=== PATIENT | female | born 1965 | race Caucasian/White ===

== ENCOUNTER 2020-04-01 10:25 | Emergency (ER) | payer BC, SELFPAY ==
--- NOTE | 2020-04-01 10:28 | ED.GENADULT ---
HPI - General Adult General Chief complaint: Upper Respiratory Infection Stated complaint: No taste or smell Time Seen by Provider: 04/01/20 10:27 Source: patient Mode of arrival: ambulatory Limitations: no limitations History of Present Illness HPI narrative: 54-year-old female patient presents to the [facility] with complaints of cold symptoms and then woke up today with no taste or no smell. Patient denies being around anybody recently that she is aware of that has Covid. Patient states she has been taking [id number] Mucinex and ibuprofen for her symptoms. Patient denies any chest pain, shortness of breath, fevers, body aches or chills. Related Data Allergies Allergy/AdvReac Type Severity Reaction Status Date / Time Sulfa (Sulfonamide Allergy Intermediate rash Verified 08/25/17 12:20 Antibiotics) Review of Systems Review of Systems: Narrative: CONSTITUTIONAL: Denies fever, chills, or sweats. EYES: Denies visual changes, redness, or discharge. ENT: Positive rhinorrhea, congestion, denies sore throat, or otalgia. Positive no sneezing mouth or taste starting today CARDIOVASCULAR: Denies chest pain, palpitations, or edema. RESPIRATORY: Denies cough or dyspnea. GASTROINTESTINAL: Denies abdominal pain, nausea, vomiting, or diarrhea. GENITOURINARY: Denies dysuria or hematuria. SKIN: Denies rash or itching. MUSCULOSKELETAL: Denies back pain, joint pain, or myalgia. NEUROLOGIC: Positive headache, denies numbness, or weakness. PSYCHIATRIC: Denies anxiety or depression. 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 There is no relevant family history pertinent to the presenting complaint. Exam Narrative: Exam Narrative: GENERAL: Well-appearing, well-nourished, and in no acute distress. HEAD: Normocephalic, atraumatic. EYES: PERRLA and EOMI. ENT: Nares clear, no rhinorrhea or epistaxis. Mucous membranes moist. NECK: Supple. No lymphadenopathy CHEST: Clear to auscultation. No respiratory distress. Patient able talk in clear complete sentences. No tripoding noted. HEART: Regular rate and rhythm. No murmur heard. Normal peripheral pulses. ABDOMEN: Soft, nontender, nondistended, normal active bowel sounds. EXTREMITIES: Normal range of motion. No edema. SKIN: Warm, dry, no rash. NEURO: No focal deficits. Alert and oriented x3. Course Vital Signs Vital signs: Vital Signs Temperature 36.6 C 04/01/20 10:50 Pulse Rate 86 04/01/20 10:50 Respiratory Rate 18 04/01/20 10:50 Blood Pressure 142/90 H 04/01/20 10:50 Pulse Oximetry 99 04/01/20 10:50 Temperature 36.6 C 04/01/20 10:50 Pulse Rate 86 04/01/20 10:50 Respiratory Rate 18 04/01/20 10:50 Blood Pressure 142/90 H 04/01/20 10:50 Pulse Oximetry 99 04/01/20 10:50 Vital signs reviewed The patient has been informed that they may have pre-hypertension or Hypertension based on a BP reading in the department. I recommend that the patient call the primary care provider listed on their discharge instructions or a physician of their choice this week to arrange follow up for further evaluation of possible pre-hypertension or Hypertension Medical Decision Making Differential Diagnosis Differential Diagnosis: Differential diagnosis: Allergic rhinitis, chronic sinusitis, tonsillitis, acute sinusitis, infectious mononucleosis, seasonal influenza, pertussis, diphtheria, meningococcal disease, viral syndrome, viral bronchitis, RSV, COVID-19 Discussed with patient that we did do a rap
[2020-04-01 10:50] VITALS: BP 142/90; PULSE 86; RESP 18; TEMP 36.6; O2SAT 99
== END 2020-04-01 11:11 | disposition home or self-care (01) ==
PROVIDERS: Emergency Provider Nurse Practitioner Family; PCP Internal Medicine
DX: U07.1 COVID-19 (principal)
CPT/HCPCS: 87426; 99213; C9803; G0463

== ENCOUNTER 2020-11-27 12:55 | Emergency (ER) | payer BC, SELFPAY ==
[2020-11-27 13:04] VITALS: BP 144/86; PULSE 16; RESP 81; TEMP 36.3; O2SAT 99
--- NOTE | 2020-11-27 14:33 | ED.URI ---
HPI - URI/Sore Throat General Chief Complaint: Upper Respiratory Infection Stated Complaint: Ear,Throat Pain Time Seen by Provider: 11/27/20 14:00 Source: patient, RN notes reviewed and old records reviewed Mode of arrival: ambulatory Limitations: no limitations History of Present Illness HPI Narrative: 55 year old female presents to [facility] care with one week duration of sinus congestion and post nasal drainage. Patient states that she has sinus pressure to her face and even her teeth hurt. She reports that she is fully COVID vaccinated, denies any shortness of breath or any body aches.Patient denies any known fevers chills or sweats. Patient has been taking Claritin and Mucinex and using nasal spray with no resolution of her symptoms.Patient has prior history of sinus surgery and sinus infections. MD elicited complaint: sore throat and nasal congestion Related Data Allergies Allergy/AdvReac Type Severity Reaction Status Date / Time Sulfa (Sulfonamide Allergy Intermediate rash Verified 11/27/20 13:32 Antibiotics) Review of Systems Review of Systems: CONSTITUTIONAL: Denies fever, chills, or sweats. EYES: Denies visual changes, redness, or discharge. ENT: Positive for rhinorrhea, congestion, facial pressure,no sore throat, or otalgia. CARDIOVASCULAR: Denies chest pain, palpitations, or edema. RESPIRATORY: Denies cough or dyspnea. GASTROINTESTINAL: Denies abdominal pain, nausea, vomiting, or diarrhea. GENITOURINARY: Denies dysuria or hematuria. SKIN: Denies rash or itching. MUSCULOSKELETAL: Denies back pain, joint pain, or myalgia. NEUROLOGIC: Denies headache, numbness, or weakness. PSYCHIATRIC: Denies anxiety or depression. 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 Uterine ablation Pneumonia Sinus problem Sinus surgery Surgical History Surgical History (Updated 11/30/20 @ 17:22 by Kim Knapp NP) History of endometrial ablation Family History Family History (Updated 11/30/20 @ 17:11 by Kim Knapp NP) Grandparent Diabetes mellitus Cerebrovascular accident Father Heart disease Mother Dementia Social History Social History (Updated 11/30/20 @ 17:23 by Kim Knapp NP) Smoking status: Former smoker Tobacco type: cigarettes Alcohol intake: current Substance use: never Living arrangements: with family Gender identity (if verbalized by the patient): Female Comments At time of signature, agree with nursing past medical, surgical, social and family history. There is no relevant family history pertinent to the presenting complaint Exam Narrative: GENERAL: Well-appearing, well-nourished, and in no acute distress. HEAD: Normocephalic, atraumatic. EYES: PERRLA and EOMI. ENT: Nares red with clear rhinorrhea no epistaxis facial pressure and teeth hurt,mucous membranes moist.TM's normal with good light reflex, throat pink with no lesions or exudates,no tonsil enlargement, post nasal drainage NECK: Supple. no lymphadenopathy CHEST: Clear to auscultation. No respiratory distress.SAO2 99% on room air HEART: Regular rate and rhythm. No murmur heard. Normal peripheral pulses. ABDOMEN: Soft, nontender, nondistended, normal active bowel sounds. EXTREMITIES: Normal range of motion. No edema. SKIN: Warm, dry, no rash. NEURO: No focal deficits. Alert and oriented x3. Course Vital Signs Vital signs: Vital Signs Temperature 36.3 C L 11/27/20 13:04 Pulse Rate 16 L 11/27/20 13:04 Respiratory Rate 81 H 11/27/20 13:04 Blood Pressure 144/86 H 11/27/20 13:04 Pulse Oximetry 99 11/27/20 13:04 Temperature 36.3 C L 11/27/20 13:04 Pulse Rate 16 L 11/27/20 13:04 Respiratory Rate 81 H 11/27/20 13:04 Blood Pressure 144/86 H 11/27/20 13:04 Pulse Oximetry 99 11/27/20 13:04 MDM - URI/Sore Throat Differenti
== END 2020-11-27 14:55 | disposition home or self-care (01) ==
PROVIDERS: Emergency Provider Registered Nurse; PCP Internal Medicine
DX: J32.9 Chronic sinusitis, unspecified (principal); Z87.891 Personal history of nicotine dependence
CPT/HCPCS: 87081; 87880; 99213; G0463

== ENCOUNTER 2021-05-30 13:53 | Emergency (ER) | payer BC, SELFPAY ==
[2021-05-30 14:12] VITALS: BP 132/65; PULSE 79; RESP 20; TEMP 36.6; O2SAT 100
--- NOTE | 2021-05-30 14:16 | ED.ABDPAIN ---
HPI - Abdominal Pain General Chief Complaint: Abdominal Pain Stated Complaint: abd pain/back pain Time Seen by Provider: 05/30/21 14:16 Source: patient, RN notes reviewed and old records reviewed Mode of arrival: ambulatory Limitations: no limitations History of Present Illness HPI narrative: 56-year-old female presents to the [facility] with pain to the upper abdomen, epigastric and right upper associated with vomiting x1, pain wrapping around into her back. Patient denies any past medical or surgical history. Has not taken anything for her symptoms. Patient states that she is belching constantly. States that she has had similar symptoms since Mar, this started approximately 1 hour prior to arrival. Denies fevers, chest pain, shortness of breath. Pain does not radiate to the jaw nor the arm. MD elicited complaint: abdominal pain Radiation: RUQ and epigastric Related Data Allergies Allergy/AdvReac Type Severity Reaction Status Date / Time Sulfa (Sulfonamide Allergy Intermediate rash Verified 11/27/20 13:32 Antibiotics) Review of Systems Review of Systems: All systems reviewed & are unremarkable except as noted in HPI and below Constitutional: Constitutional: Reports no additional constitutional complaints, Denies body ache(s), Denies chills and Denies fever(s) Eyes: Eyes: Reports no additional eye complaints ENT: Reports system reviewed and no additional complaints, except as documented Cardiovascular: Cardiovascular: Reports no additional cardiovascular complaints, Denies chest pain and Denies dyspnea Respiratory: Respiratory: Reports no additional respiratory complaints, Denies cough and Denies dyspnea Gastrointestinal: Gastrointestinal: Reports as per HPI, Reports abdominal pain, Denies diarrhea, Reports nausea and Reports vomiting Genitourinary: Genitourinary: Reports no additional female genitourinary complaints Musculoskeletal: Musculoskeletal: Reports no additional musculoskeletal complaints Integumentary/Breasts: Skin/Breast: Reports system reviewed and no additional complaints, except as docu Neurologic: Reports system reviewed and no additional complaints, except as documented Psychiatric: Psychiatric: Reports no additional psychiatric complaints Allergic/Immunologic: Allergic/Immunologic: Reports no additional allergic/immunologic complaints PMF Past Medical History Medical History 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 There is no relevant family history pertinent to the patient complaint. Exam Const: General: cooperative, healthy appearing, comfortable, no acute distress, well developed, alert and in distress mild (pain) Nutritional Appearance: well nourished and overweight Orientation/consciousness: patient oriented x3 Limitations: no limitations HENMT: Head: normal to inspection Ears: external ears normal Eyes: Pupils: Equal, round and reactive pupils present Neck: Neck: normal visual inspection, no lymphadenopathy and no meningeal signs Chest: Chest palpation & inspection: normal inspection of the chest Resp: Effort & Inspection: normal respiratory effort, able to speak in complete sentence
== END 2021-05-30 14:30 | disposition short-term general hospital (02) ==
PROVIDERS: Emergency Provider Nurse Practitioner; PCP Internal Medicine
DX: R10.11 Right upper quadrant pain (principal); R10.13 Epigastric pain; Z87.891 Personal history of nicotine dependence
CPT/HCPCS: 99212; G0463

== ENCOUNTER 2021-05-30 14:35 | Emergency (ER) | payer BC, SELFPAY ==
--- NOTE | ~2021-05-30 | CT_ITS ---
EXAMINATION: CT abdomen pelvis w con DATE: 05/30/2021 18:14 INDICATION: RUQ pain TECHNIQUE: Computed tomography (CT) of the abdomen and pelvis was performed with 100 mL Omnipaque-350 intravenous contrast. Automated exposure control and iterative reconstruction technique were employe d. The dose-length product was 732.07 mGy-cm. COMPARISON: None FINDINGS: Lower thorax: Granulomatous calcifications. Liver: Normal. Biliary/Gallbladder: Gallbladder is normal. No bile duct dilation. Spleen: Granulomatous calcification. Pancreas: No mass or duct dilation. Adrenals:Thickening, likely hyperplasia. No nodules. Kidneys: No mass, stone, or hydronephrosis. GI tract: No small or large bowel dilation. Normal appendix. Mesentery/Peritoneum: No ascites, mass, or free air. Retroperitoneum: No mass. Pelvis: Pelvic organs are within normal limits. Bones/Soft Tissues: Soft tissues and body wall unremarkable. Additional Findings: None. IMPRESSION: No acute abdominopelvic process detected. Reviewed, dictated and finalized at location K.
[2021-05-30 15:08] VITALS: BP 138/82; PULSE 79; RESP 18; TEMP 36.4; O2SAT 100
[2021-05-30 15:24] LABS: Basophils Percent Auto 0.4 % (0.2-1.2); Eosinophils Absolute Auto 0.1 K/mm3 (0-0.3); Eosinophils Percent Auto 0.5 % (0-4.4); Hematocrit 39.6 % (37.0-47.0); Hemoglobin 12.9 g/dL (12.0-15.0); Immature Granulocyte Absolute 0.06 K/mm3 (0.00-0.031); Immature Granulocyte Percent A 0.6 % (0-0.5); Lymphocytes Absolute Auto 1.67 K/mm3 (0.9-3.2); Lymphocytes Percent Auto 15.8 % (18.3-44.2); Mean Corpuscular HGB Conc 32.6 g/dl (32-36); Mean Corpuscular Hemoglobin 31.2 pg (26-34); Mean Corpuscular Volume 95.9 fl (80-100); Mean Platelet Volume 9.9 fl (7.4-10.4); Monocytes Absolute Auto 0.6 K/mm3 (0.1-0.6); Monocytes Percent Auto 5.6 % (2.6-8.5); Neutrophils Absolute Auto 8.2 K/mm3 (1.3-6.7); Neutrophils Percent Auto 77.1 % (45.5-73.1); Platelet Count Result 173 k/mm3 (150-375); Red Blood Count 4.13 M/mm3 (4.2-5.4); Red Cell Distribution Width 12.4 % (11.5-14.5); White Blood Count 10.6 K/mm3 (4.5-10.0)
[2021-05-30 15:38] LABS: Alanine Aminotransferase 44 U/L (4-35); Albumin Level 4.4 g/dL (3.5-5.1); Alkaline Phosphatase 58 U/L (38-126); Anion Gap 6 mmol/L (8-16); Aspartate Amino Transferase 93 U/L (14-36); Bilirubin,Total 0.4 mg/dL (0.2-1.3); Blood Urea Nitrogen 24 mg/dL (7-17); Calcium 8.9 mg/dL (8.4-10.2); Carbon Dioxide 32 mmol/L (22-30); Chloride 99 mmol/L (98-107); Estimated CRCL calculation 73 ml/min; Estimated Glomerular Filt Rate > 60; Glucose 131 mg/dL (65-110); Lipase 818 U/L (23-300); Potassium 4.3 mmol/L (3.4-5.0); Sodium 137 mmol/L (137-145)
[2021-05-30 16:18] LABS: Add Urine Microscopic? YES; Appearance Urine Clear (Clear); Bilirubin Urine Negative (Negative); Blood Urine Negative (Negative); Color Urine Yellow (Yellow); Glucose Urine UA Negative (Negative); Ketones Urine Negative (Negative); Leukocyte Esterase Ur Negative LEU/UL (Negative); Mucus Urine Rare /lpf; Nitrate Urine Negative (Negative); Protein Urine Negative (Negative); RBC Urine 0-2 /hpf (0-2); Specific Grav Ur 1.021 (1.001-1.035); Squamous Epithelial Cell Urine Rare /hpf (Few); Urobilinogen Urine Negative mg/dL (<2.0); WBC Urine 0-3 /hpf
--- NOTE | 2021-05-30 17:39 | ED.ABDPAIN ---
HPI - Abdominal Pain General Chief Complaint: Abdominal Pain Stated Complaint: abdominal pain Time Seen by Provider: 05/30/21 17:33 History of Present Illness HPI narrative: 56-year-old female presents the emergency room complaints of intermittent abdominal pain since March. Patient states the pain starts in the middle of her back and radiates to the front. States the pain is worse when sitting down or when getting up to a standing position. Patient states that she has acid reflux even though she has never been formally diagnosed. Patient denies nausea, vomiting, constipation, diarrhea. Patient denies fever patient states that she has a bloated feeling in her upper abdomen. Patient states the discomfort is not worse after meals. No changes to her bowel habits. Denies dysuria. Related Data Allergies Allergy/AdvReac Type Severity Reaction Status Date / Time Sulfa (Sulfonamide Allergy Intermediate rash Verified 11/27/20 13:32 Antibiotics) Review of Systems Review of Systems: CONSTITUTIONAL: Denies fever, chills, or sweats. EYES: Denies visual changes, redness, or discharge. ENT: Denies rhinorrhea, congestion, sore throat, or otalgia. CARDIOVASCULAR: Denies chest pain, palpitations, or edema. RESPIRATORY: Denies cough or dyspnea. GASTROINTESTINAL: Upper abdominal pain GENITOURINARY: Denies dysuria or hematuria. SKIN: Denies rash or itching. MUSCULOSKELETAL: Denies back pain, joint pain, or myalgia. NEUROLOGIC: Denies headache, numbness, dizziness, or weakness. PSYCHIATRIC: Denies anxiety or depression. 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 HEAD: Normocephalic, atraumatic. EYES: PERRLA and EOMI. CHEST: Clear to auscultation. No respiratory distress. No wheezes rales or rhonchi HEART: Regular rate and rhythm. No murmur heard. Normal peripheral pulses. ABDOMEN: Soft, right upper quadrant, left upper quadrant tenderness, nondistended, normal active bowel sounds. EXTREMITIES: Normal range of motion. No edema. SKIN: Warm, dry, no rash. NEURO: No focal deficits. Alert and oriented x3. PSYCH: Normal mood and affect. Course Vital Signs Vital signs: Vital Signs Temperature 36.4 C L 05/30/21 15:08 Pulse Rate 79 05/30/21 15:08 Respiratory Rate 18 05/30/21 15:08 Blood Pressure 138/82 05/30/21 15:08 Pulse Oximetry 100 05/30/21 15:08 Temperature 36.3 C L 05/30/21 20:00 Pulse Rate 74 05/30/21 20:00 Respiratory Rate 16 05/30/21 20:00 Blood Pressure 154/86 H 05/30/21 20:00 Pulse Oximetry 98 05/30/21 20:00 MDM - Abdominal Pain MDM Narrative Medical decision making narrative: 56-year-old female presented the emergency room with complaints of a back pain that radiated into her upper abdomen. Patient states that this is been present for about 2 months. CBC and CMP were unremarkable. Lipase was elevated. Lipase and hepatitis screens were within normal limits. CAT scan was unremarkable for any intra-abdominal abnormalities. Due to the elevated lipase and elevated AST and ALT, will have patient follow-up with GI for further evaluation. Will start patient on Protonix daily. Lab Data Result diagra
[2021-05-30] MEDS: SODIUM CHLORIDE 0.9% IV 1,000 ML 999 ML IV CONT (17:57)
[2021-05-30 19:00] VITALS: BP 152/80; PULSE 78; RESP 16; O2SAT 100
[2021-05-30 20:00] VITALS: BP 154/86; PULSE 74; RESP 16; TEMP 36.3; O2SAT 98
[2021-05-30 20:34] VITALS: BP 152/84; PULSE 76; RESP 16; O2SAT 98
[2021-05-30 20:37] LABS: Cholesterol 196 mg/dL (0-200); HDL Direct 47 mg/dL; Triglycerides 135 mg/dL (<150)
[2021-05-30 20:47] LABS: Hepatitis B Surface Antigen Negative (Negative)
[2021-05-30 20:48] LABS: LDL Cholesterol Direct 105 mg/dL
[2021-05-30 20:52] LABS: HAV RESULT Negative (Negative)
[2021-05-30] MEDS: BELLADONNA ALK/PHENOB ELIX 10 ML, MAG HYDROX/ALUMINUM HYD/SIMETH 30 ML, LIDOCAINE HCL 2... PO (20:59)
[2021-05-30 21:05] LABS: Hepatitis B Surface Anti Res Negative; Hepatitis C Virus Antibody Negative (Negative)
== END 2021-05-30 21:14 | disposition home or self-care (01) ==
PROVIDERS: Emergency Medicine; Emergency Provider Nurse Practitioner Family; PCP Internal Medicine
DX: R10.10 Upper abdominal pain, unspecified (principal); R74.8 Abnormal levels of other serum enzymes; Z87.891 Personal history of nicotine dependence; Z88.2 Allergy status to sulfonamides
CPT/HCPCS: 36415; 74177; 80053; 80061; 81001; 83690; 85025; 86706; 86709; 86803; 87340; 96360; 96361; 99284; A9270; J7030; Q9967

== ENCOUNTER 2021-07-04 10:48 | Outpatient (CLI) | payer BC, SELFPAY ==
[2021-07-04 11:33] LABS: Alanine Aminotransferase 15 U/L (6-35); Albumin Level 4.7 g/dL (3.5-5.1); Alkaline Phosphatase 58 U/L (38-126); Aspartate Amino Transferase 27 U/L (14-36); Bilirubin,Total 0.4 mg/dL (0.2-1.3); Lipase 134 U/L (23-300)
== END 2021-07-04 10:49 | disposition home or self-care (01) ==
LOC: ANHLAB 10:50
PROVIDERS: PCP Internal Medicine; Visit Provider Nurse Practitioner Family
DX: R74.8 Abnormal levels of other serum enzymes (principal)
CPT/HCPCS: 36415; 80076; 83690

== ENCOUNTER 2022-09-23 08:42 | Emergency (ER) | payer BC, SELFPAY ==
[2022-09-23 08:52] VITALS: BP 118/52; PULSE 83; RESP 16; TEMP 37.1; O2SAT 100
--- NOTE | 2022-09-23 09:05 | ED.GENADULT ---
HPI - General Adult General Chief complaint: Upper Respiratory Infection Stated complaint: congestion Source: patient Mode of arrival: ambulatory Limitations: no limitations History of Present Illness HPI narrative: Patient presents for evaluation of sinus symptoms for last 3 days. Symptoms include sinus congestion, mucopurulent discharge from the nares, chills, mild sore throat, bilateral otalgia and productive cough of yellow sputum. Symptoms refractory to multiple medications including mucinex, ibuprofen, nasal spray and allergy medication. She does not smoke. Her nephew recently had similar symptoms. She has had sinus infections in the past and this feels similar. Related Data Allergies Allergy/AdvReac Type Severity Reaction Status Date / Time Sulfa (Sulfonamide Allergy Intermediate rash Verified 09/23/22 09:09 Antibiotics) Review of Systems Review of Systems: CONSTITUTIONAL: Reports chills. Denies fever or sweats. EYES: Denies visual changes, redness, or discharge. ENT: Reports sinus congestion, mucopurulent discharge from nares, sore throat and bilateral ear pain CARDIOVASCULAR: Denies chest pain, palpitations, or edema. RESPIRATORY:Reports productive cough of yellow sputum. Denies dyspnea. GASTROINTESTINAL: Denies abdominal pain, nausea, vomiting, or diarrhea. GENITOURINARY: Denies dysuria or hematuria. SKIN: Denies rash or itching. MUSCULOSKELETAL: Denies back pain, joint pain, or myalgia. NEUROLOGIC: Denies headache, numbness, dizziness, or weakness. PSYCHIATRIC: Denies anxiety or depression. 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 HEAD: Normocephalic, atraumatic. EYES: PERRLA and EOMI. ENT: Bilateral maxillary and frontal sinus tenderness. There is mucopurulent discharge in the nares bilaterally. Mucous membranes moist. Oropharynx without tonsillar hypertrophy exudate or other lesions. Bilateral TMs pearly bains nonbulging NECK: Supple. No adenopathy or masses. No carotid bruits or JVD CHEST: Clear to auscultation. No respiratory distress. No wheezes rales or rhonchi HEART: Regular rate and rhythm. No murmur heard. Normal peripheral pulses. ABDOMEN: Soft, nontender, nondistended, normal active bowel sounds. EXTREMITIES: Normal range of motion. No edema. SKIN: Warm, dry, no rash. NEURO: No focal deficits. Alert and oriented x3. PSYCH: Normal mood and affect. Course Course Emergency Course: This is a 57-year-old female who presented for evaluation of sinus symptoms. She meets criteria for ABRS based on characteristics of nasal discharge. Her symptoms have been refractory to multiple medications. Will start augmentin. Follow up with primary provider. Go to ER for worsening symptoms. Pt in agreement with plan of care. Level of Care: Express Care Visit Vital Signs Vital signs: Vital Signs Temperature 37.1 C 09/23/22 08:52 Pulse Rate 83 09/23/22 08:52 Respiratory Rate 16 09/23/22 08:52 Blood Pressure 118/52 L 09/23/22 08:52 Pulse Oximetry 100 09/23/22 08:52 Oxygen Delivery Room Air
== END 2022-09-23 09:06 | disposition home or self-care (01) ==
PROVIDERS: Emergency Provider Nurse Practitioner; PCP Internal Medicine
DX: J01.90 Acute sinusitis, unspecified (principal); Z87.891 Personal history of nicotine dependence; E66.9 Obesity, unspecified; Z68.34 Body mass index [BMI] 34.0-34.9, adult
CPT/HCPCS: 99213; G0463

== ENCOUNTER 2023-04-11 10:15 | Emergency (ER) | payer BC, SELFPAY | END 2023-04-11 10:35 | disposition home or self-care (01) | LOC: EXPCOLL 04-17 16:09 | PROVIDERS: Emergency Provider Nurse Practitioner | DX: J06.9 Acute upper respiratory infection, unspecified (principal) | CPT/HCPCS: 99213; G0463 ==